=== PATIENT | male | born 1935 | race Caucasian/White ===

== ENCOUNTER 2016-10-16 14:41 | Inpatient (IN) | payer OTHER ==
[~2016-10-16] VITALS: Ht 152.4 cm; Wt 80.7 kg
[~2016-10-16 14:41] MED LIST: ALLO100T30 PO; AMOX1TAB64 PO; APIX5TAB PO; ENOX80SY5 SQ; LATA2.5D3 EACHEYE; LISI5TAB7 PO; LOVA40TA2 PO; METH500T7 PO; METO-93 PO
[2016-10-16] MEDS ORDERED: OMEP-110 PO (15:47)
[2016-10-16] MEDS ORDERED: FLUN25SP NAS (15:47)
[2016-10-16] MEDS ORDERED: TAMS0.4C2 PO (15:47)
[2016-10-16] MEDS ORDERED: FURO20TA3 PO (15:47)
[2016-10-16] MEDS ORDERED: BUTA1CAP30 PO (15:47)
[2016-10-16 16:05] LABS: HEMOGLOBIN 13.4 g/dL (13.7-18.0)
[2016-10-16 16:16] LABS: BLOOD UREA NITROGEN 25 mg/dL (7-18)
[2016-10-16] MEDS ORDERED: HEPARIN 5,000 UNITS/ML, 1ML IV ONE (16:30)
[2016-10-16] MEDS ORDERED: HEPARIN 5,000 UNITS/ML, 1ML IV PRN (16:30)
[2016-10-16] MEDS ORDERED: HEPARIN 25,000 UNITS/500ML PMX 500 ML IV PRN (16:30)
[2016-10-16] MEDS ORDERED: HEPARIN 5,000 UNITS/ML, 1ML ONE (16:32)
[2016-10-16] MEDS ORDERED: HEPARIN 25,000 UNITS/500ML PMX 500 ML ONE (16:33)
[2016-10-16] MEDS ORDERED: ACETAMINOPHEN 325 MG TABLET PO PRN (17:30)
[2016-10-16 17:42] VITALS: BP 158/72
[2016-10-16 19:11] VITALS: BP 143/60
[2016-10-16] MEDS: LATANOPROST OPHTH 0.005%, 2.5ML EACHEYE SCH (21:23)
[2016-10-16] MEDS: LOVASTATIN 40 MG TABLET PO SCH (21:23)
[2016-10-16] MEDS: TAMSULOSIN 0.4 MG CAP.ER.24H PO SCH (21:23)
[2016-10-16] MEDS: HEPARIN 5,000 UNITS/ML, 1ML IV PRN (22:40)
[2016-10-17 03:44] VITALS: BP 131/70
[2016-10-17 05:00] LABS: HEMOGLOBIN 13.6 g/dL (13.7-18.0)
[2016-10-17 05:11] LABS: BLOOD UREA NITROGEN 24 mg/dL (7-18)
[2016-10-17 07:28] VITALS: BP 179/83
[2016-10-17] MEDS: FUROSEMIDE 20 MG TABLET PO SCH (09:00)
[2016-10-17] MEDS: ALLOPURINOL 100 MG TABLET PO SCH (09:01)
[2016-10-17] MEDS: OMEPRAZOLE 20 MG CAPSULE.DR PO SCH (09:01)
[2016-10-17] MEDS: LISINOPRIL 5 MG TABLET PO SCH (09:01)
[2016-10-17] MEDS: HEPARIN 5,000 UNITS/ML, 1ML IV PRN (12:30)
[2016-10-17 13:20] VITALS: BP 159/74
[2016-10-17 19:29] VITALS: BP 122/72
[2016-10-17] MEDS: TAMSULOSIN 0.4 MG CAP.ER.24H PO SCH (20:31)
[2016-10-17] MEDS: LATANOPROST OPHTH 0.005%, 2.5ML EACHEYE SCH (20:31)
[2016-10-17] MEDS: LOVASTATIN 40 MG TABLET PO SCH (20:31)
[2016-10-17] MEDS: HEPARIN 25,000 UNITS/500ML PMX 500 ML IV PRN (21:35)
[2016-10-18 01:35] VITALS: BP 186/84
[2016-10-18 07:08] VITALS: BP 162/79
[2016-10-18] MEDS: ALLOPURINOL 100 MG TABLET PO SCH (09:35)
[2016-10-18] MEDS: FUROSEMIDE 20 MG TABLET PO SCH (09:35)
[2016-10-18] MEDS: LISINOPRIL 5 MG TABLET PO SCH (09:35)
[2016-10-18] MEDS: OMEPRAZOLE 20 MG CAPSULE.DR PO SCH (09:35)
[2016-10-18 12:43] VITALS: BP 107/61
[2016-10-18 13:24] VITALS: BP 146/82
[2016-10-18 19:34] VITALS: BP 141/74
[2016-10-18] MEDS: LOVASTATIN 40 MG TABLET PO SCH (21:00)
[2016-10-18] MEDS: TAMSULOSIN 0.4 MG CAP.ER.24H PO SCH (21:04)
[2016-10-18] MEDS: LATANOPROST OPHTH 0.005%, 2.5ML EACHEYE SCH (21:05)
[2016-10-18] MEDS: HEPARIN 25,000 UNITS/500ML PMX 500 ML IV PRN (22:34)
[2016-10-19 02:34] VITALS: BP 149/73
[2016-10-19 06:36] VITALS: BP 154/78
[2016-10-19] MEDS: FUROSEMIDE 20 MG TABLET PO SCH (09:05)
[2016-10-19] MEDS: ALLOPURINOL 100 MG TABLET PO SCH (09:06)
[2016-10-19] MEDS: OMEPRAZOLE 20 MG CAPSULE.DR PO SCH (09:06)
[2016-10-19] MEDS: LISINOPRIL 5 MG TABLET PO SCH (09:06)
[2016-10-19 12:34] VITALS: BP 115/73
[2016-10-19] MEDS ORDERED: Enoxaparin 1 mg/kg protocol SQ SCH (15:30)
[2016-10-19] MEDS ORDERED: PHARMACY MAY ADJ FOR RENAL FX MC PRN (15:30)
[2016-10-19 19:18] VITALS: BP 106/61
[2016-10-19] MEDS ORDERED: ENOXAPARIN 80 MG/0.8 ML SQ SCH (20:00)
[2016-10-19] MEDS: LOVASTATIN 40 MG TABLET PO SCH (20:30)
[2016-10-19] MEDS: TAMSULOSIN 0.4 MG CAP.ER.24H PO SCH (20:30)
[2016-10-19] MEDS: LATANOPROST OPHTH 0.005%, 2.5ML EACHEYE SCH (21:00)
[2016-10-20 01:03] VITALS: BP 117/64
[2016-10-20 05:09] LABS: HEMOGLOBIN 14.5 g/dL (13.7-18.0)
[2016-10-20 05:15] LABS: BLOOD UREA NITROGEN 25 mg/dL (7-18)
[2016-10-20 06:34] VITALS: BP 138/69
[2016-10-20] MEDS: OMEPRAZOLE 20 MG CAPSULE.DR PO SCH (08:07)
[2016-10-20] MEDS: LISINOPRIL 5 MG TABLET PO SCH (08:08)
[2016-10-20] MEDS: ALLOPURINOL 100 MG TABLET PO SCH (08:08)
[2016-10-20] MEDS: FUROSEMIDE 20 MG TABLET PO SCH (08:09)
[2016-10-20] MEDS ORDERED: ENOX80SY4 SQ (11:09)
[2016-10-20] MEDS ORDERED: ALLO100T30 PO (11:09)
[2016-10-20 12:30] VITALS: BP 105/63
[2016-10-20] MEDS ORDERED: ENOXAPARIN 80 MG/0.8 ML SQ SCH (15:00)
== END 2016-10-20 16:30 | disposition home health service (06) | DRG 300 ==
LOC: ED 15:21 → EDIP 15:45 → 3NE 17:30
PROVIDERS: ADMIT Hospitalist; ATTEND Hospitalist
DX: I82.432 Acute embolism and thrombosis of left popliteal vein (principal); D68.59 Other primary thrombophilia; L97.929 Non-pressure chronic ulcer of unspecified part of left lower leg with unspecified severity; I82.412 Acute embolism and thrombosis of left femoral vein; S91.002A Unspecified open wound, left ankle, initial encounter; N18.3 Chronic kidney disease, stage 3 (moderate); M71.22 Synovial cyst of popliteal space [Baker], left knee; D53.9 Nutritional anemia, unspecified; F09 Unspecified mental disorder due to known physiological condition; I12.9 Hypertensive chronic kidney disease with stage 1 through stage 4 chronic kidney disease, or unspecified chronic kidney disease; I25.10 Atherosclerotic heart disease of native coronary artery without angina pectoris; G89.29 Other chronic pain; M54.9 Dorsalgia, unspecified; I87.2 Venous insufficiency (chronic) (peripheral); M10.9 Gout, unspecified; M71.20 Synovial cyst of popliteal space [Baker], unspecified knee; Z86.718 Personal history of other venous thrombosis and embolism; Z86.73 Personal history of transient ischemic attack (TIA), and cerebral infarction without residual deficits; Z87.891 Personal history of nicotine dependence; Z95.1 Presence of aortocoronary bypass graft; Z82.61 Family history of arthritis; Z90.49 Acquired absence of other specified parts of digestive tract; Z95.0 Presence of cardiac pacemaker; Z66 Do not resuscitate
CPT/HCPCS: 36415; 80048; 82040; 82565; 82607; 82746; 85025; 85520; 85610; 85730; 93005; 96365; 96368; J1644; J1650